=== PATIENT | male | born 1975 | race African-American/Black ===

== ENCOUNTER → 2016-11-19 | Outpatient (CLI) | payer OTHER ==
[~2016-11-19] MED LIST: NAPROSYN500 MG PO
== END | disposition home or self-care (01) ==
LOC: CECH 10:13
DX: R94.31 Abnormal electrocardiogram [ECG] [EKG] (principal); I10 Essential (primary) hypertension; G47.33 Obstructive sleep apnea (adult) (pediatric); I51.7 Cardiomegaly
CPT/HCPCS: 93306